=== PATIENT | male | born 1985 | race Caucasian/White ===

== ENCOUNTER 2023-08-25 16:17 | Emergency (ER) | payer MEDICAID ==
--- NOTE | 2023-08-25 16:24 | ED ---
Extremity Problem HPI - General Source: patient, family, RN notes reviewed Mode of arrival: ambulatory Limitations: no limitations <Evelyn Cuba - Last Filed: 08/25/23 16:30> <Patricia Calvillo - Last Filed: 08/31/23 00:50> - General Chief complaint: Extremity Injury, Lower Stated complaint: Left Leg Pain Time Seen by Provider: 08/25/23 16:22 - History of Present Illness Initial comments: Quick Note: This is a 38-year-old male who presents to the emergency department for left leg pain. Symptoms started 2-3 days ago. Pain is primarily in the back of the leg near the calf. Yesterday the pain started to travel up into the thigh area. He has noticed some redness to the leg as well. Denies any injuries. Denies any history of blood clots, chest pain, or shortness of breath. States that he did have a fever a couple of days ago that has since resolved. (Evelyn Cuba) 38-year-old male presents emergency department for left leg pain. Pain started 3 days ago. It is located in the posterior aspect of the right calf. He noticed some associated redness and swelling. Today the pain moved up into the thigh. He denies history of DVT or PE. No chest pain or shortness of breath. Admits to possible cellulitis in the past but never saw physician for and symptoms went away on their own. He denies any fever. No injuries. No other alleviating, precipitating or modifying factors (Patricia Calvillo) - Related Data Previous Rx's Medication Instructions Recorded Cephalexin [Keflex] 500 mg PO Q6HR #28 cap 08/25/23 Sulfamethox-Tmp 800-160Mg [Bactrim 2 tab PO Q12HR #28 tab 08/25/23 DS 800-160 mg] Allergies Allergy/AdvReac Type Severity Reaction Status Date / Time No Known Allergies Allergy Verified 08/25/23 16:23 Review of Systems ROS Other: All systems not noted in ROS Statement are negative. <Evelyn Cuba - Last Filed: 08/25/23 16:30> ROS Other: All systems not noted in ROS Statement are negative. <Patricia Calvillo - Last Filed: 08/31/23 00:50> ROS Statement: Those systems with pertinent positive or pertinent negative responses have been documented in the HPI. General Exam <Evelyn Cuba - Last Filed: 08/25/23 16:30> General appearance: alert, in no apparent distress Head exam: Present: atraumatic, normocephalic, normal inspection Eye exam: Present: normal appearance, PERRL, EOMI. Absent: scleral icterus, conjunctival injection, periorbital swelling ENT exam: Present: normal exam, mucous membranes moist Neck exam: Present: normal inspection. Absent: tenderness, meningismus, lymphadenopathy Respiratory exam: Present: normal lung sounds bilaterally. Absent: respiratory distress, wheezes, rales, rhonchi, stridor Cardiovascular Exam: Present: regular rate, normal rhythm, normal heart sounds. Absent: systolic murmur, diastolic murmur, rubs, gallop, clicks GI/Abdominal exam: Present: soft, normal bowel sounds. Absent: distended, tenderness, guarding, rebound, rigid Extremities exam: Present: full ROM, tenderness (Patient has tenderness, redness and swelling to the left lower leg around the calf. There are multiple areas of abrasions. Compartments are soft. 2+ DP and PT pulses. Intact sensation and range of motion), normal capillary refill. Absent: pedal edema, joint swelling, calf tenderness Back exam: Present: normal inspection Neurological exam: Present: alert, oriented X3, CN II-XII intact Psychiatric exam: Present: normal affect, normal mood Skin exam: Present: warm, dry, intact, normal color. Absent: rash <Patricia Calvillo - Last Filed: 08/31/23 00:50> - General Exam Comments Initial Comments: Visual Physical Exam Vital signs reviewed General: Well-appearing, nontoxic, no acute distress. Head: Normocephalic, atraumatic Eyes: PERRLA, EOMI ENT: Airway patent Chest: Nonlabored breathing Skin: No visual rash, normal skin tone Neuro: Alert and oriented 3 Musculoskeletal: No gross abnormalities (Evelyn Cuba) Course Vital Signs 08/25/23 08/25/23 16:20 18:43 Temperature 98.2 F Pulse Rate 105 H 98 Respiratory 16 18 Rate Blood Pressure 147/98 126/78 O2 Sat by Pulse 97 97 Oximetry Medical Decision Making <Evelyn Cuba - Last Filed: 08/25/23 16:30> - Lab Data Result diagrams: 08/25/23 16:34 08/25/23 16:34 <Patricia Calvillo - Last Filed: 08/31/23 00:50> - Medical Decision Making I performed the QuickNote portion of this chart. Signed Evelyn Cuba PA-C. (Evelyn Cuba) Was pt. sent in by a medical professional or institution ([facility], [employer] SPECIALIST, urgent care, hospital, or care home...) When possible be specific @ -No Did you speak to anyone other than the patient for history (EMS, parent, family, police, friend...)? What history was obtained from this source @ -Spoke with the patient's significant other for history Did you review nursing and triage notes (agree or disagree)? Why? @ -I reviewed and agree with nursing and triage notes Were old charts reviewed (outside hosp., previous admission, EMS record, old EKG, old radiological studies, urgent care reports/EKG's, care home records)? Report findings @ -No old charts were reviewed Differential Diagnosis (chest pain, altered mental status, abdominal pain women, abdominal pain men, vaginal bleeding, weakness, fever, dyspnea, syncope, headache, dizziness, GI bleed, back pain, seizure, CVA, palpatations, mental health, musculoskeletal)? @ -Cellulitis, DVT, trauma, compartment syndrome EKG interpreted by me (3pts min.). @ -Not done X-rays interpreted by me (1pt min.). @ -None done CT interpreted by me (1pt min.). @ -None done U/S interpreted by me (1pt. min.). @ -Yes and demonstrates no DVT What testing was considered but not performed or refused? (CT, X-rays, U/S, labs)? Why? @ -None What meds were considered but not given or refused? Why? @ -None Did you discuss the management of the patient with other professionals (yarelis parsons i.e. [facility], [employer] SPECIALIST, lab, RT, psych nurse, social work therapist, clerical adjuster, teacher, attendance officer, manager work)? Give summary @ -No Was smoking cessation discussed for >3mins.? @ -No Was critical care preformed (if so, how long)? @ -No Were there social determinants of health that impacted care today? How? (Homelessness, low income, unemployed, alcoholism, drug addiction, transportation, low edu. Level, literacy, decrease access to med. care, intermediate, rehab)? @ -No Was there de-escalation of care discussed even if they declined (Discuss DNR or withdrawal of care, Hospice)? DNR status @ -No What co-morbidities impacted this encounter? (DM, HTN, Smoking, COPD, CAD, Cancer, CVA, ARF, Chemo, Hep., AIDS, mental health diagnosis, sleep apnea, morbid obesity)? @ -None Was patient admitted / discharged? Hospital course, mention meds given and route, prescriptions, significant lab abnormalities, going to OR and other pertinent info. @ -Upon arrival patient seen and evaluated in room 29. Thorough history and physical exam was performed. Ultrasound was performed which was negative. Patient given a dose of antibiotics. Patient will take antibiotic as directed and keep his leg iced and elevated. Follow-up with his doctor. Return for any worsening symptoms. Patient agreeable plan was discharged in stable condition Undiagnosed new problem with uncertain prognosis? @ -No Drug Therapy requiring intensive monitoring for toxicity (Heparin, Nitro, Insulin, Cardizem)? @ -No Were any procedures done? @ -No Diagnosis/symptom? @ -Acute left leg pain, suspected cellulitis Acute, or Chronic, or Acute on Chronic? @ -Acute Uncomplicated (without systemic symptoms) or Complicated (systemic symptoms)? @ -Uncomplicated Side effects of treatment? @ -No Exacerbation, Progression, or Severe Exacerbation? @ -No Poses a threat to life or bodily function? How? (Chest pain, [place], [place], pneumonia, PE, COPD, DKA, ARF, appy, cholecystitis, CVA, Diverticulitis, Homicidal, Suicidal, threat to staff... and all critical care pts) @ -No (Patricia Calvillo) - Lab Data Lab Results 08/25/23 08/25/23 08/25/23 Range/Units 16:34 16:34 16:34 WBC 10.3 (3.8-10.6) k/uL RBC 5.27 (4.30-5.90) m/uL Hgb 15.6 (13.0-17.5) gm/dL Hct 44.8 (39.0-53.0) % MCV 85.0 (80.0-100.0) fL MCH 29.5 (25.0-35.0) pg MCHC 34.8 (31.0-37.0) g/dL RDW 12.7 (11.5-15.5) % Plt Count 199 (150-450) k/uL MPV 7.0 Neutrophils % 71 % Lymphocytes % 20 % Monocytes % 6 % Eosinophils % 2 % Basophils % 0 % Neutrophils # 7.3 (1.3-7.7) k/uL Lymphocytes # 2.0 (1.0-4.8) k/uL Monocytes # 0.6 (0-1.0) k/uL Eosinophils # 0.2 (0-0.7) k/uL Basophils # 0.0 (0-0.2) k/uL Sodium 138 (137-145) mmol/L Potassium 4.0 (3.5-5.1) mmol/L Chloride 107 (98-107) mmol/L Carbon Dioxide 21 L (22-30) mmol/L Anion Gap 10 mmol/L BUN 14 (9-20) mg/dL Creatinine 0.81 (0.66-1.25) mg/dL Est GFR (CKD-EPI)AfAm >90 (>60 ml/min/1.73 sqM) Est GFR (CKD-EPI)NonAf >90 (>60 ml/min/1.73 sqM) Glucose 102 H (74-99) mg/dL Plasma Lactic Acid Jass 0.9 (0.7-2.0) mmol/L Calcium 9.1 (8.4-10.2) mg/dL Total Bilirubin 1.1 (0.2-1.3) mg/dL AST 50 (17-59) U/L ALT 95 H (4-49) U/L Alkaline Phosphatase 80 (38-126) U/L C-Reactive Protein 5.8 H (<1.0) mg/dL Total Protein 7.8 (6.3-8.2) g/dL Albumin 4.7 (3.5-5.0) g/dL Disposition <Evelyn Cuba - Last Filed: 08/25/23 16:30> Is patient prescribed a controlled substance at d/c from ED?: No Time of Disposition: 19:21 <Damion Calvilloah Raven - Last Filed: 08/31/23 00:50> Clinical Impression: Cellulitis of left leg Disposition: HOME SELF-CARE Condition: Stable Instructions (If sedation given, give patient instructions): Cellulitis (ED) Additional Instructions: Please take the antibiotics as directed. Follow-up with your doctor to ensure improvement. If you have any new or worsening symptoms, return to the emergency department Prescriptions: Sulfamethox-Tmp 800-160Mg [Bactrim DS 800-160 mg] 2 tab PO Q12HR #28 tab Cephalexin [Keflex] 500 mg PO Q6HR #28 cap Referrals: None,Stated [Primary Care Provider] - 1-2 days
[2023-08-25 16:33] VITALS: TEMP 98.2
[2023-08-25 16:54] LABS: Basophils % (A) 0 %; Eosinophils # (A) 0.2 k/uL (0-0.7); Eosinophils % (A) 2 %; HCT 44.8 % (39.0-53.0); HGB 15.6 gm/dL (13.0-17.5); Lymphocytes % (A) 20 %; MCH 29.5 pg (25.0-35.0); MCHC 34.8 g/dL (31.0-37.0); Monocytes # (A) 0.6 k/uL (0-1.0); Monocytes % (A) 6 %; Neutrophils # (A) 7.3 k/uL (1.3-7.7); Neutrophils % (A) 71 %; Platelet Count 199 k/uL (150-450); RBC 5.27 m/uL (4.30-5.90); RDW 12.7 % (11.5-15.5); WBC 10.3 k/uL (3.8-10.6)
[2023-08-25 17:08] LABS: ALT 95 U/L (4-49); AST 50 U/L (17-59); African American GFR (CKD) >90 (>60 ml/min/1.73 sqM); Albumin 4.7 g/dL (3.5-5.0); Alkaline Phosphatase 80 U/L (38-126); Anion Gap 10 mmol/L; Blood Urea Nitrogen 14 mg/dL (9-20); C Reactive Protein 5.8 mg/dL (<1.0); Calcium 9.1 mg/dL (8.4-10.2); Carbon Dioxide 21 mmol/L (22-30); Chloride 107 mmol/L (98-107); Glucose 102 mg/dL (74-99); Non-African American GFR(CKD) >90 (>60 ml/min/1.73 sqM); Sodium 138 mmol/L (137-145); Total Bilirubin 1.1 mg/dL (0.2-1.3); Total Protein 7.8 g/dL (6.3-8.2)
--- NOTE | 2023-08-25 18:11 | US ---
EXAMINATION TYPE: US venous doppler duplex LE LT DATE OF EXAM: 08/25/2023 5:48 PM COMPARISON: NONE CLINICAL INDICATION: Male, 38 years old with history of Pain and swelling; Redness in left calf x 2 d ays. Pt states he did have a fever 2 days ago SIDE PERFORMED: Left TECHNIQUE: The lower extremity deep venous system is examined utilizing real time linear array sonog sidney with graded compression, doppler sonography and color-flow sonography. VESSELS IMAGED: Common Femoral Vein Deep Femoral Vein Greater Saphenous Vein * Femoral Vein Popliteal Vein Small Saphenous Vein * Proximal Calf Veins (* superficial vessels) Left Leg: No evidence for DVT. No abnormalities seen in area of redness IMPRESSION: Grayscale, color doppler, spectral doppler imaging performed of the deep veins of the lo wer extremities. There is normal flow, compressibility, vascular waveforms.
[2023-08-25] MEDS: CEPHALEXIN 500 MG CAP PO STA (19:23)
[2023-08-25] MEDS: SULFAMETHOX-TMP 800-160MG 1 EACH TAB PO STA (19:23)
[2023-08-25 19:32] VITALS: BP 126/78; PULSE 98; RESP 18
== END 2023-08-25 19:27 | disposition home or self-care (01) ==
LOC: EC 16:17
DX: L03.116 Cellulitis of left lower limb (principal)
CPT/HCPCS: 36415; 80053; 83605; 85025; 86140; 99284